=== PATIENT | male | born 1955 | race Caucasian/White ===

== ENCOUNTER 2021-05-04 14:23 | Outpatient (CLI) | payer MEDICARE ==
[2021-05-05 02:55] LABS: SARS-CoV-2 PCR by NAA Not Detected (NotDetected)
== END 2021-05-04 14:24 | disposition home or self-care (01) ==
LOC: LABBT 14:23
PROVIDERS: ATTEND Internal Medicine Pulmonary Disease
DX: Z01.812 Encounter for preprocedural laboratory examination (principal); R91.1 Solitary pulmonary nodule; Z20.822 Contact with and (suspected) exposure to COVID-19
CPT/HCPCS: U0003; U0005

== ENCOUNTER 2021-05-06 08:19 | Day surgery (SDC) | payer MEDICARE ==
[2021-05-04 09:12] VITALS: BMI 32.4
[2021-05-06] MEDS ORDERED: Fentanyl 100 MCG/2 ML VIAL ONE (10:11)
[2021-05-06] MEDS ORDERED: Ondansetron PF 4 MG/2 ML Vial ONE (10:43)
[2021-05-06] MEDS ORDERED: Phenylephrine 10 MG/ML VIAL ONE (10:43)
[2021-05-06] MEDS ORDERED: Lidocaine 1% PF 5 ML VIAL ONE (10:43)
[2021-05-06] MEDS ORDERED: PROPOFOL 200 MG/20 ML VIAL ONE (10:43)
[2021-05-06] MEDS ORDERED: Glycopyrrolate 0.2 MG/ML 5 ML SYRINGE ONE (10:43)
[2021-05-06] MEDS ORDERED: Rocuronium Bromide 10 MG/ML (10ML VIAL) ONE (10:43)
[2021-05-06] MEDS ORDERED: Dexamethasone 20 MG/5 ML VIAL ONE (10:43)
== END 2021-05-06 13:25 | disposition home or self-care (01) ==
LOC: SDC 08:19
PROVIDERS: ATTEND Internal Medicine Pulmonary Disease
PROC: 07D78ZX Extraction of Thorax Lymphatic, Via Natural or Artificial Opening Endoscopic, Diagnostic (ICD-10-PCS; principal; 2021-05-06)
DX: C34.01 Malignant neoplasm of right main bronchus (principal); J42 Unspecified chronic bronchitis; F17.290 Nicotine dependence, other tobacco product, uncomplicated; E66.9 Obesity, unspecified; Z68.32 Body mass index [BMI] 32.0-32.9, adult; Z79.82 Long term (current) use of aspirin; Z79.899 Other long term (current) drug therapy
CPT/HCPCS: 88173; 88305; 88313; 88341; 88342; J1100; J2370; J2405; J2704; J3010; J7620